=== PATIENT | male | born 1985 | race Caucasian/White ===

== ENCOUNTER 2024-03-18 08:43 | Emergency (ER) | payer MEDICAID, SELFPAY ==
[2024-03-18 08:48] VITALS: BP 109/77; PULSE 102; RESP 18; TEMP 36.6; O2SAT 97; BMI 16.0
--- NOTE | 2024-03-18 09:20 | CRLHL7_ITS ---
For Patients: As a result of the Century Cures Act, medical imaging exams and procedure reports are released immediately into your electronic medical record. You may view this report before your referring provider. If you have questions, please contact your health care provider. INDICATION: WEAKNESS TECHNIQUE: CT of the head was performed without IV contrast. COMPARISON: None. FINDINGS: Parenchyma: No acute hemorrhage, infarction, or mass. Ventricles and extra-axial spaces: Appropriate for age. Visualized paranasal sinuses: Clear. Mastoid air cells: Clear. Bones: No focal abnormality. Additional comment: None. IMPRESSION: No acute intracranial abnormality. Please note that all CT scans at this facility use dose modulation, iterative reconstruction, and/or weight-based dosing when appropriate to reduce radiation dose to as low as reasonably achievable. Dictated by Xavier Valero MD @ 03/18/2024 10:17:02 AM (Electronically Signed)
--- NOTE | 2024-03-18 09:20 | CRLHL7_ITS ---
For Patients: As a result of the Century Cures Act, medical imaging exams and procedure reports are released immediately into your electronic medical record. You may view this report before your referring provider. If you have questions, please contact your health care provider. INDICATION: Weakness COMPARISON: None TECHNIQUE: Upright single view examination. FINDINGS: TUBES AND LINES: None. HEART AND MEDIASTINUM: The heart size is normal. The mediastinal contour appears normal for patient age. LUNGS AND PLEURAL SPACES: The lungs appear normal.The pleural spaces are unremarkable. OSSEOUS STRUCTURES: Age-appropriate appearance. No acute focal finding. IMPRESSION: No evidence of active pulmonary disease. Dictated by Vish Dyson MD @ 03/18/2024 9:58:59 AM (Electronically Signed)
--- NOTE | 2024-03-18 09:23 | ED_ITS ---
HPI - General Adult General Chief complaint: Neuro Symptoms/Altered Deficit Stated complaint: stroke possible 2 days ago Time Seen by Provider: 03/18/24 08:48 History of Present Illness HPI narrative: 38-year-old white male with multiple medical problems presents primarily with right eye redness, some scabbing about his hands in the intertriginous areas. He has had chronic medical issues and just was released from custodial in [facility] where he was hospitalized for about 40 days. He had some digestive issues and had part of his stomach removed by his report. He is here with his parents. He lives in [place] with his parents. He has lost a lot a weight due to his GI issues. He was discharged from the hospital. He was discharged from present. 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 He reports he has had some eye redness but no pain vision has been grossly normal, he has also noted some urinary symptoms and he does self catheterization. He has had some chronic weakness and a lot of weight loss as mention. Family is most concerned about his rash, make sure does not have pneumonia or urinary tract infection. They also request check for a possible stroke although he reports that he has been chronically weak. His mother reports that he has had digestive issues and this has been a problem with his eating and weight management. Patient has received most of his care at [facility] by his family's report. He is an insulin- dependent diabetic Related Data Home Medications ?Medication ?Instructions ?Recorded ?Confirmed acetaminophen 325 mg capsule 975 mg PO .Q8 PRN 03/18/24 03/18/24 albuterol PRN 03/18/24 amitriptyline 50 mg tablet 50 mg PO QHS 03/18/24 03/18/24 apixaban 5 mg tablet 5 mg PO BID 03/18/24 03/18/24 cholestyramine-aspartame oral ea PO 03/18/24 powder cyanocobalamin (vitamin B-12) 1,000 mcg PO DAILY 03/18/24 03/18/24 1,000 mcg capsule dicyclomine 20 mg tablet 20 mg PO BID 03/18/24 03/18/24 duloxetine 30 mg capsule,delayed 30 mg PO DAILY 03/18/24 03/18/24 release (Cymbalta) fluconazole 200 mg tablet 800 mg PO DAILY 03/18/24 03/18/24 (Diflucan) folic acid 1 mg tablet 1,000 mcg PO DAILY 03/18/24 03/18/24 gabapentin 300 mg capsule 900 mg PO TID 03/18/24 03/18/24 osshuw-mykzgelw-rvyyuzy 5 cap PO TID 03/18/24 03/18/24 12,000-38,000-60,000 unit capsule,delayed rel (Creon) tjxzke-guhsjwpw-shnutap 2 cap PO BID 03/18/24 03/18/24 36,000-114,000-180,000 unit capsule,delay rel (Creon) Previous Rx's ?Medication ?Instructions ?Recorded nitrofurantoin 100 mg PO Q12H 7 days #14 caps 03/18/24 monohydrate/macrocrystals 100 mg capsule (Macrobid) permethrin 1 % topical liquid 30 ml topical ONCE #59 mL 03/18/24 sulfacetamide sodium 10 % eye drops 1 drp ophthalmic (eye-right) Q4H 5 03/18/24 days #15 mL Allergies Allergy/AdvReac Type Severity Reaction Status Date / Time augmentin Allergy Mild stomach Uncoded 03/18/24 09:11 upset Review of Systems Status of ROS: Reports: 6 or more systems reviewed and unremarkable except as noted in History and below [facility] Social History Non-prescribed substance use: denies use Exam Narrative: Exam Narrative: Objective: Patient's vital signs look unremarkable This is a cachectic male, he has got some intertriginous scabbing and redness consistent with a scabies infection of his hands. He has got right eye conjunctivitis No other facial asymmetry neck is supple Chest clear Pulse regular Abdomen has a midline surgical scar Extremities without edema neurologic grossly nonfocal. The patient is able to stand and move. Does not appear to have focal neurologic weakness. Const: Vital Signs, click to edit/add: Vital Signs - 24 hr 03/18/24 08:48 Temperature 97.8 F Pulse Rate [Pulse Oximeter] 102 H Respiratory Rate 18 Blood Pressure [Le ft Upper Arm] 109/77 Pulse Oximetry 97 Oxygen Delivery Me thod Room Air Course Vital Signs Vital signs: Initial Vital Signs Temperature 97.8 F 03/18/24 08:48 Temperature Source Temporal Artery Scan 03/18/24 08:48 Pulse Rate 102 H 09/11/24 08:48 Respiratory Rate 18 03/18/24 08:48 Blood Pressure 109/77 03/18/24 08:48 Blood Pressure Mean 87 03/18/24 08:48 Blood Pressure Position Sitting 03/18/24 08:48 Pulse Oximetry 97 03/18/24 08:48 Oxygen Delivery Method Room Air 03/18/24 08:48 Vital Signs Temperature 97.8 F 03/18/24 08:48 Pulse Rate 102 H 03/18/24 08:48 Respiratory Rate 18 03/18/24 08:48 Blood Pressure 109/77 03/18/24 08:48 Pulse Oximetry 97 03/18/24 08:48 Oxygen Delivery Method Room Air 03/18/24 08:48 Temperature 97.8 F 03/18/24 08:48 Pulse Rate 102 H 03/18/24 08:48 Respiratory Rate 18 03/18/24 08:48 Blood Pressure 109/77 03/18/24 08:48 Pulse Oximetry 97 03/18/24 08:48 Oxygen Delivery Method Room Air 03/18/24 08:48 Medical Decision Making MDM Narrative Medical decision making narrative: 30-year-old cachectic male with history of GI issues cared for at [facility], now with complaint of right eye conjunctivitis, skin rash on his hands, and concern for UTI or pneumonia. Will check a urine test, x-ray of his chest, CT scan of his head, laboratory studies. Disposition pending findings. He will need to follow-up with his GI specialty group about weight issues and GI problems. The patient at this point appears hemodynamically stable. He reports that he is able to eat and drink but will need follow-up as mentioned above. Will check labs as above. Addendum 10:37 a.m.: The patient's head CT looks unremarkable, chest x-ray is negative by my read. Patient has a urinalysis shows trace leukocyte esterase. I think because of his symptoms would cover with antibiotics will give him Macro dantin 100 mg b.i.d. x7 days. He has right eye conjunctivitis and will get him soon limit for that to use as directed, would also give him permethrin for his potential scabies infection. He should follow up with regular doctor in the next few days. I would also recommend he follow-up with his GI doctor as mentioned above as he has elevated alk phosphatase, I did order isoenzymes on that and that would be helpful for follow-up GI visit. He has no abdominal pain I do not think he needs imaging of his stomach at this time. Return as needed. Nursing staff noticed a couple areas of skin irritation and breakdown on his buttock area and will give him a option for wound care follow-up. Think follow- up with GI and worry about his nutritional status would be very important. Return as needed. Lab Data Labs: Lab Results 03/18/24 03/18/24 Range/Units 09:50 10:04 WBC 11.15 H (4.50-11.00) K/uL RBC 4.52 (4.30-5.90) m/uL Hgb 12.5 L (13.5-17.5) gm/dL Hct 39.4 (37.0-53.0) % MCV 87 (80-100) fL MCH 28 (26-34) pg MCHC 32 (32-36) gm/dL RDW Coeff of Hossein 16.7 H (11.5-15.5) % Plt Count 352 (140-440) K/uL Neut % (Auto) 71.6 (42.0-72.0) % Lymph % (Auto) 20.1 (20-44) % [place] % (Auto) 6.5 (0.0-11.0) % Eos % (Auto) 1.0 (0.0-7.0) % Baso % (Auto) 0.7 (0.0-3.0) % Neut # (Auto) 8.00 H (1.7-7.0) K/uL Lymph # (Auto) 2.20 (0.90-2.90) K/uL [place] # (Auto) 0.70 (0.00-0.90) K/UL Eos # (Auto) 0.10 (0.00-0.50) K/uL Baso # (Auto) 0.10 (0.00-0.30) K/uL Abs Immat Gran (auto) 0.00 (0.00-0.30) K/uL Imm/Tot Granulo (auto) 0.1 % Sodium 133 L (135-149) mmol/L Potassium 3.7 (3.6-5.1) mmol/L Chloride 104 (96-114) mmol/L Carbon Dioxide 18 L (20-32) mmol/L Anion Gap 11 (7-15) mEq/L BUN 20 (5-24) mg/dL Creatinine 1.4 (0.5-1.5) mg/dL Estimated Creat Clear 52.78 Estimated GFR 66 ml/min Glucose 284 H (60-115) mg/dL Calcium 10.2 (8.4-10.6) mg/dL Total Bilirubin 0.4 (0.1-1.5) mg/dL Direct Bilirubin 0.4 (0.0-0.5) mg/dL AST 39 H (12-35) U/L ALT 27 (4-50) U/L Alkaline Phosphatase 582 H (40-150) U/L C-Reactive Protein < 0.5 L (0.5-1.0) mg/dL Total Protein 8.1 (6.0-8.3) g/dL Albumin 4.0 (3.3-5.0) g/dL Urine Color Yellow (Yellow) Urine Appearance Cloudy A (Clear) Urine pH 5.5 (5.0-8.5) Ur Specific [place] >= 1.030 (1.000-1.030) Urine Protein 2+ A (Negative) Urine Glucose (UA) Negative (Negative) Urine Ketones Negative (Negative) Urine Blood 3+ A (Negative) Urine Nitrite Negative (Negative) Urine Bilirubin Negative (Negative) Urine Urobilinogen 0.2 (0.2-1.0) Ur Leukocyte Esterase Trace A (Negative) Urine RBC 5-10 A (0-2) Urine WBC 25-50 A (0-5) Urine WBC Clumps None (None) Ur Squamous Epith Cells None (None-Few) Calcium Oxalate Crystal Few A (None) Urine Bacteria Many A (None) Discharge Plan Discharge Clinical Impression: Conjunctivitis, Rash of hand, Diabetes, Alkaline phosphatase elevation, Urinary tract infection Patient Disposition: Home w/ Parent or Adult Condition: Stable Instructions: Scabies (ED) Additional Instructions: Recheck with your GI doctor within the next week or 2 regarding your weight, and GI issues such as your elevated liver function test. Topical lotion for your skin rash. Eye drop for your right eye conjunctivitis. Continue home medications. Establish primary care and see them within the next few days as w [place]. macrodantin for uti Activity Level: Light activity Discharge Diet: Regular Prescriptions: New sulfacetamide sodium 10 % drops 1 drp ophthalmic (eye-right) Q4H 5 Days Qty: 15 0RF permethrin 1 % liquid 30 ml topical ONCE Qty: 59 0RF nitrofurantoin monohyd/m-cryst [Macrobid] 100 mg capsule 100 mg PO Q12H 7 Days Qty: 14 0RF Rx Instructions: must administer with a meal/food No Action acetaminophen 325 mg capsule 975 mg PO .Q8 PRN albuterol PRN Patient Comments: 2 puffs every 4 hours as needed amitriptyline 50 mg tablet 50 mg PO QHS apixaban 5 mg tablet 5 mg PO BID cholestyramine-aspartame Powder PO Creon 36,000-114,000- 180,000 unit capsule,delayed release(DR/EC) 2 cap PO BID Rx Instructions: administer with meals and/or snacks Creon 12,000-38,000 -60,000 unit capsule,delayed release(DR/EC) 5 cap PO TID Rx Instructions: administer with meals and/or snacks cyanocobalamin (vitamin B-12) 1,000 mcg capsule 1,000 mcg PO DAILY dicyclomine 20 mg tablet 20 mg PO BID duloxetine [Cymbalta] 30 mg capsule,delayed release(DR/EC) 30 mg PO DAILY fluconazole [Diflucan] 200 mg tablet 800 mg PO DAILY folic acid 1 mg tablet 1,000 mcg PO DAILY gabapentin 300 mg capsule 900 mg PO TID Stand Alone Forms: [facility] Info Instructions
[2024-03-18 09:59] LABS: Basophils Percent Auto 0.7 % (0.0-3.0); Hematocrit 39.4 % (37.0-53.0); Hemoglobin* 12.5 gm/dL (13.5-17.5); Immature Granulocytes Pct Auto 0.1 %; Lymphocytes Percent Auto 20.1 % (20-44); Mean Corpuscular HGB Conc 32 gm/dL (32-36); Mean Corpuscular Hemoglobin 28 pg (26-34); Mean Corpuscular Volume 87 fL (80-100); Monocytes Percent Auto 6.5 % (0.0-11.0); Neutrophils Percent Auto 71.6 % (42.0-72.0); Platelet Count* 352 K/uL (140-440); RDW Coefficient of Variation % 16.7 % (11.5-15.5); Red Blood Count 4.52 m/uL (4.30-5.90); White Blood Count* 11.15 K/uL (4.50-11.00)
[2024-03-18 10:04] LABS: Slide Review Reflex No
[2024-03-18 10:11] LABS: Chloride* 104 mmol/L (96-114)
[2024-03-18 10:12] LABS: Potassium* 3.7 mmol/L (3.6-5.1); Sodium* 133 mmol/L (135-149)
[2024-03-18 10:14] LABS: Creatinine* 1.4 mg/dL (0.5-1.5); Est. Creatinine Clearance* 52.78; Estimated Glomerular Filt Rate 66 ml/min
[2024-03-18 10:15] LABS: Alanine Aminotransferase* 27 U/L (4-50); Alkaline Phosphatase* 582 U/L (40-150); Anion Gap 11 mEq/L (7-15); Aspartate Amino Transferase* 39 U/L (12-35); Bilirubin Direct* 0.4 mg/dL (0.0-0.5); Bilirubin Total* 0.4 mg/dL (0.1-1.5); Blood Urea Nitrogen* 20 mg/dL (5-24); Calcium* 10.2 mg/dL (8.4-10.6); Carbon Dioxide* 18 mmol/L (20-32); Glucose* 284 mg/dL (60-115); Total Protein* 8.1 g/dL (6.0-8.3)
[2024-03-18 10:19] LABS: C Reactive Protein* < 0.5 mg/dL (0.5-1.0)
[2024-03-18 10:21] LABS: Appearance Urine Cloudy (Clear); Bilirubin Urine Negative (Negative); Blood Urine 3+ (Negative); Color Urine Yellow (Yellow); Glucose Urine Negative (Negative); Ketones Urine Negative (Negative); Leukocyte Esterase Urine Trace (Negative); Nitrite Urine Negative (Negative); Protein Urine 2+ (Negative); Specific Gravity Urine >= 1.030 (1.000-1.030); Urobilinogen Urine 0.2 (0.2-1.0); pH Urine 5.5 (5.0-8.5)
[2024-03-18 10:42] LABS: WBC Urine 25-50 (0-5)
[2024-03-18 10:43] LABS: Bacteria Urine Many; Calcium Oxalate Crystals Urine Few
== END 2024-03-18 11:34 | disposition home or self-care (01) ==
PROVIDERS: Emergency Provider Family Medicine; PCP Family Medicine
DX: H10.021 Other mucopurulent conjunctivitis, right eye (principal); E11.9 Type 2 diabetes mellitus without complications; N39.0 Urinary tract infection, site not specified; R74.8 Abnormal levels of other serum enzymes
CPT/HCPCS: 36415; 70450; 71045; 80048; 80076; 81001; 84075; 84080; 85025; 86140; 87086; 87186; 99284

== ENCOUNTER 2024-03-20 00:18 | Emergency (ER) | payer MEDICAID, SELFPAY ==
[2024-03-20 00:26] VITALS: BP 107/77; PULSE 103; RESP 14; TEMP 36.6; O2SAT 96; BMI 15.3
--- NOTE | 2024-03-20 00:40 | ED.GENADULT ---
HPI - General Adult General Chief complaint: Weakness Stated complaint: weakness Time Seen by Provider: 03/20/24 00:28 History of Present Illness HPI narrative: Patient is a 38-year-old gentleman who was just seen yesterday here the emergency room. 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 He has recently in retirement for making terroristic threats. Upon discharge he was found by his family to be more cachectic and emaciated and previous. He is diabetic but did not seem to have evidence of DKA yesterday. He comes in today with complaints that all of his skin is falling off and he is leaking water every where. Um he does have some superficial ulcerations on his finger tips which do not appear secondarily infected but upon further questioning agrees that temp his skin likely is not falling off. Clearly is not eating and is failing at home. He does live with his parents since his discharge from present. No other localized complaints. Did review his findings from yesterday which showed UTI he is on antibiotics. He was noted to have a elevated alkaline phosphatase and isoenzymes are pending. Again no other localizing symptoms. Related Data Home Medications ?Medication ?Instructions ?Recorded ?Confirmed acetaminophen 325 mg capsule 975 mg PO .Q8 PRN 03/18/24 03/18/24 albuterol PRN 03/18/24 amitriptyline 50 mg tablet 50 mg PO QHS 03/18/24 03/18/24 apixaban 5 mg tablet 5 mg PO BID 03/18/24 03/18/24 cholestyramine-aspartame oral ea PO 03/18/24 powder cyanocobalamin (vitamin B-12) 1,000 mcg PO DAILY 03/18/24 03/18/24 1,000 mcg capsule dicyclomine 20 mg tablet 20 mg PO BID 03/18/24 03/18/24 duloxetine 30 mg capsule,delayed 30 mg PO DAILY 03/18/24 03/18/24 release (Cymbalta) fluconazole 200 mg tablet 800 mg PO DAILY 03/18/24 03/18/24 (Diflucan) folic acid 1 mg tablet 1,000 mcg PO DAILY 03/18/24 03/18/24 gabapentin 300 mg capsule 900 mg PO TID 03/18/24 03/18/24 tgyvav-gmgqadln-spiwpka 5 cap PO TID 03/18/24 03/18/24 12,000-38,000-60,000 unit capsule,delayed rel (Creon) sgmiig-kainmgac-twwgvap 2 cap PO BID 03/18/24 03/18/24 36,000-114,000-180,000 unit capsule,delay rel (Creon) Previous Rx's ?Medication ?Instructions ?Recorded nitrofurantoin 100 mg PO Q12H 7 days #14 caps 03/18/24 monohydrate/macrocrystals 100 mg capsule (Macrobid) permethrin 1 % topical liquid 30 ml topical ONCE #59 mL 03/18/24 sulfacetamide sodium 10 % eye drops 1 drp ophthalmic (eye-right) Q4H 5 03/18/24 days #15 mL Allergies Allergy/AdvReac Type Severity Reaction Status Date / Time augmentin Allergy Mild stomach Uncoded 03/18/24 09:11 upset Review of Systems Status of ROS: Reports: 10 or more systems reviewed and unremarkable except as noted in History and below [facility] Social History Non-prescribed substance use: denies use Exam Narrative: Exam Narrative: EXAM GENERAL: Patient appears cachectic and emaciated. EYES: No scleral icterus. LYMPH: No supraclavicular or cervical lymphadenopathy. SKIN: Superficial ulcerations on the fingertips which could be consistent with cigarette durant from smoking. EXT: No dependent lower extremity pedal edema. HEART: Regular rate and rhythm with no murmurs, rubs, or gallops. LUNGS: Clear to auscultation bilaterally with no crackles or wheezes. ABD: Soft, non tender, non distended. Scaphoid emaciated PSYCH: Good eye contact, speech is not pressured. Const: Vital Signs, click to edit/add: Vital Signs - 24 hr 03/20/24 00:26 Temperature 98 F Pulse Rate [Pulse Oximeter] 103 H Respiratory Rate 14 Blood Pressure [Ri ght Upper Arm] 107/77 Pulse Oximetry 96 Oxygen Delivery Me thod Room Air Course Course ED Course: Patient seen and examined. We will repeat previous workup and reassess. Vital Signs Vital signs: Initial Vital Signs Temperature 98 F 03/20/24 00:26 Temperature Source Temporal Artery Scan 03/20/24 00:26 Pulse Rate 103 H 03/20/24 00:26 Respiratory Rate 14 03/20/24 00:26 Blood Pressure 107/77 03/20/24 00:26 Blood Pressure Mean 87 03/20/24 00:26 Blood Pressure Position Sitting 03/20/24 00:26 Pulse Oximetry 96 03/20/24 00:26 Oxygen Delivery Method Room Air 03/20/24 00:26 Vital Signs Temperature 98 F 03/20/24 00:26 Pulse Rate 103 H 03/20/24 00:26 Respiratory Rate 14 03/20/24 00:26 Blood Pressure 107/77 03/20/24 00:26 Pulse Oximetry 96 03/20/24 00:26 Oxygen Delivery Method Room Air 03/20/24 00:26 Temperature 98 F 03/20/24 00:26 Pulse Rate 103 H 03/20/24 00:26 Respiratory Rate 14 03/20/24 00:26 Blood Pressure 107/77 03/20/24 00:26 Pulse Oximetry 96 03/20/24 00:26 Oxygen Delivery Method Room Air 03/20/24 00:26 Medical Decision Making MDM Narrative Medical decision making narrative: I have seen the patient visited with family and reviewed his recent medical records. Patient appears to be grossly malnourished. His labs are the same with leukocytosis mild anemia and elevated alkaline phosphatase. I did advise him to continue his antibiotics. I do think that a large component of over dealing with his failure to thrive. He does have an appointment with GI in the next few hours and I do think releasing him to the care of his family is reasonable at this time. Patient will continue to tried to improve his oral intake and will get established with primary care which I do think is going to be [place]. Lab Data Labs: Lab Results 03/20/24 Range/Units 00:45 WBC 13.37 H (4.50-11.00) K/uL RBC 4.15 L (4.30-5.90) m/uL Hgb 11.5 L (13.5-17.5) gm/dL Hct 36.1 L (37.0-53.0) % MCV 87 (80-100) fL MCH 28 (26-34) pg MCHC 32 (32-36) gm/dL RDW Coeff of Hossein 16.7 H (11.5-15.5) % Plt Count 372 (140-440) K/uL Neut % (Auto) 76.6 H (42.0-72.0) % Lymph % (Auto) 15.3 L (20-44) % [place] % (Auto) 6.7 (0.0-11.0) % Eos % (Auto) 0.7 (0.0-7.0) % Baso % (Auto) 0.6 (0.0-3.0) % Neut # (Auto) 10.20 H (1.7-7.0) K/uL Lymph # (Auto) 2.00 (0.90-2.90) K/uL [place] # (Auto) 0.90 (0.00-0.90) K/UL Eos # (Auto) 0.10 (0.00-0.50) K/uL Baso # (Auto) 0.10 (0.00-0.30) K/uL Abs Immat Gran (auto) 0.00 (0.00-0.30) K/uL Imm/Tot Granulo (auto) 0.1 % Sodium 135 (135-149) mmol/L Potassium 3.6 (3.6-5.1) mmol/L Chloride 107 (96-114) mmol/L Carbon Dioxide 17 L (20-32) mmol/L Anion Gap 11 (7-15) mEq/L BUN 23 (5-24) mg/dL Creatinine 1.3 (0.5-1.5) mg/dL Estimated Creat Clear 54.37 Estimated GFR 72 ml/min Glucose 188 H (60-115) mg/dL Calcium 9.9 (8.4-10.6) mg/dL Total Bilirubin 0.4 (0.1-1.5) mg/dL AST 38 H (12-35) U/L ALT 24 (4-50) U/L Alkaline Phosphatase 550 H (40-150) U/L Total Protein 7.8 (6.0-8.3) g/dL Albumin 3.7 (3.3-5.0) g/dL Discharge Plan Discharge Clinical Impression: Urinary tract infection Patient Disposition: Home w/ Parent or Adult Condition: Stable Instructions: Urinary Tract Infection in Men (ED) Additional Instructions: Continue current care Keep outpatient appointments Activity Level: No Restrictions Discharge Diet: Regular Prescriptions: No Action acetaminophen 325 mg capsule 975 mg PO .Q8 PRN albuterol PRN Patient Comments: 2 puffs every 4 hours as needed amitriptyline 50 mg tablet 50 mg PO QHS apixaban 5 mg tablet 5 mg PO BID cholestyramine-aspartame Powder PO Creon 36,000-114,000- 180,000 unit capsule,delayed release(DR/EC) 2 cap PO BID Rx Instructions: administer with meals and/or snacks sulfacetamide sodium 10 % drops 1 drp ophthalmic (eye-right) Q4H 5 Days Qty: 15 0RF Creon 12,000-38,000 -60,000 unit capsule,delayed release(DR/EC) 5 cap PO TID Rx Instructions: administer with meals and/or snacks cyanocobalamin (vitamin B-12) 1,000 mcg capsule 1,000 mcg PO DAILY dicyclomine 20 mg tablet 20 mg PO BID duloxetine [Cymbalta] 30 mg capsule,delayed release(DR/EC) 30 mg PO DAILY permethrin 1 % liquid 30 ml topical ONCE Qty: 59 0RF fluconazole [Diflucan] 200 mg tablet 800 mg PO DAILY folic acid 1 mg tablet 1,000 mcg PO DAILY gabapentin 300 mg capsule 900 mg PO TID nitrofurantoin monohyd/m-cryst [Macrobid] 100 mg capsule 100 mg PO Q12H 7 Days Qty: 14 0RF Rx Instructions: must administer with a meal/food Follow Up/Referrals: Salvador Saleh MD [Primary Care Provider] - Stand Alone Forms: [facility] Info Instructions
[2024-03-20 00:54] LABS: Basophils Percent Auto 0.6 % (0.0-3.0); Eosinophils Percent Auto 0.7 % (0.0-7.0); Hematocrit 36.1 % (37.0-53.0); Hemoglobin* 11.5 gm/dL (13.5-17.5); Immature Granulocytes Pct Auto 0.1 %; Lymphocytes Percent Auto 15.3 % (20-44); Mean Corpuscular HGB Conc 32 gm/dL (32-36); Mean Corpuscular Hemoglobin 28 pg (26-34); Mean Corpuscular Volume 87 fL (80-100); Monocytes Percent Auto 6.7 % (0.0-11.0); Neutrophils Percent Auto 76.6 % (42.0-72.0); Platelet Count* 372 K/uL (140-440); RDW Coefficient of Variation % 16.7 % (11.5-15.5); Red Blood Count 4.15 m/uL (4.30-5.90); White Blood Count* 13.37 K/uL (4.50-11.00)
[2024-03-20 00:57] LABS: Slide Review Reflex No
[2024-03-20 01:23] LABS: Albumin* 3.7 g/dL (3.3-5.0); Chloride* 107 mmol/L (96-114)
[2024-03-20 01:24] LABS: Potassium* 3.6 mmol/L (3.6-5.1); Sodium* 135 mmol/L (135-149)
[2024-03-20 01:26] LABS: Anion Gap 11 mEq/L (7-15); Aspartate Amino Transferase* 38 U/L (12-35); Bilirubin Total* 0.4 mg/dL (0.1-1.5); Carbon Dioxide* 17 mmol/L (20-32); Creatinine* 1.3 mg/dL (0.5-1.5); Est. Creatinine Clearance* 54.37; Estimated Glomerular Filt Rate 72 ml/min; Total Protein* 7.8 g/dL (6.0-8.3)
[2024-03-20 01:27] LABS: Alanine Aminotransferase* 24 U/L (4-50); Alkaline Phosphatase* 550 U/L (40-150); Blood Urea Nitrogen* 23 mg/dL (5-24); Calcium* 9.9 mg/dL (8.4-10.6); Glucose* 188 mg/dL (60-115)
--- OUTSIDE RECORDS SUMMARY | 2024-03-20 01:32 | XMS_ITS | Clinical Summary ---
Author Organization [facility] Address [place], [place] [address] Care Team Providers Care Credit Resolution Representative Name Role Phone Caron Loyd RN Unavailable Allergies Active Allergy Reactions Criticality Noted Date Comments Amoxicillin-Pot Clavulanate Stomach Upset 10/31 Medications Medication Sig Dispensed Refills Start Date End Date Status sildenafil citrate (VIAGRA) 100 mg tabletIndications: ED (erectile dysfunction) of organic origin,Uncontrolle d type 1 diabetes mellitus with hyperglycemia (HC) Take 1 tablet by mouth once daily if needed for Erectile Dysfunction. Take 30min to 4 hours before sexual activity. Max 100mg/24hr. 10 tablet 11 0 Active FreeStyle Jose 14 Day Easley miscIndications:Un controlled type 1 diabetes mellitus with hyperglycemia (HC) USE DIRECTED 1 Each 3 1 Active traZODone (DESYREL) 50 mg tablet TAKE 1-2 TABLETS AT BEDTIME NEEDED ORALLY ONCE A DAY 30 DAYS 2 Active acetaminophen (TYLENOL) 325 mg tablet Take 975 mg by mouth every 8 hours if needed. Active alcohol swabs Use to swab area of injection/jerrell as directed 3 Active apixaban (ELIQUIS) 5 mg tablet Take 5 mg by mouth. 4 05/23/20 24 Active cholestyramine-asp artame (Cholestyramine Light) 4 gram packet Mix 4 g in liquid then take by mouth. 4 Active cyanocobalamin (VITAMIN B12) 1,000 mcg tablet Take 1,000 mcg by mouth. 4 Active dicyclomine (BENTYL) 10 mg capsule Take 20 mg by mouth 2 times daily if needed. 4 Active folic acid 1 mg tablet Take 1 mg by mouth. 4 Active insulin lispro, U-100, (HUMALOG KWIKPEN; ADMELOG SOLOSTAR) 100 unit/mL inpn pen Inject 0-3 units three times a day before meal per correction scale. 1 unit per 50 if glucose is greater than 180 mg/dl. Discard each pen 28 days after first use. 4 Active linezolid (ZYVOX) 600 mg tablet Take 600 mg by mouth. 4 Active hxemso-xedtdfub-mc ylase (Creon) 12,000-38,000 -60,000 unit cpDR delayed-release capsule Take 5 Capsules by mouth. 4 Active hpgwrd-lbeatpbr-vq ylase (CREON) 36,000-114,000- 180,000 unit capsule Take 2 Capsules by mouth. Active blood-glucose meterIndications:T ype 1 diabetes mellitus with nephropathy (HC) As directed. Dispense meter, test strips, lancets covered by pt ins. E10.9 IDDM type I - Test 3 times/day. 1 Each 4 Active sucralfate (CARAFATE) 1 gram tablet Take 1 g by mouth four times daily before meals and at bedtime. 4 Active oxyCODONE (ROXICODONE) 5 mg immediate release tablet Take 5 mg by mouth every 4 hours if needed. 3 Active mirtazapine (REMERON) 30 mg tablet Take 30 mg by mouth at bedtime. 4 Active melatonin 3 mg tablet Take 3 mg by mouth at bedtime. 3 Active lurasidone (LATUDA) 40 mg tablet Take 40 mg by mouth with dinner. 4 Active insulin detemir U-100 (LEVEMIR) 100 unit/mL (3 mL) pen Inject 25 units subcutaneous once daily in the evening. 3 Active thiamine (VITAMIN B1) 100 mg tablet Take 100 mg by mouth once daily. 3 Active lancetsIndications :Type 1 diabetes mellitus with nephropathy (HC) Test 3 times per day. 100 Each 5 4 Active blood sugar diagnostic (Blood Glucose Test) stripIndications:T ype 1 diabetes mellitus with nephropathy (HC) Dispense item that works with the [employer] glucometer 200 Each 1 4 Active Diaper,Brief, Adult,DisposableIn dications:Incontin ence of feces, unspecified fecal incontinence type For home use. Using 3-10 a day. 300 Each 4 Active glucagon 1 mg/0.2 mL atInIndications:Ty pe 1 diabetes mellitus with nephropathy (HC) by abdominal subcutaneous route. Inject the contents of 1 device under the skin into lower abdomen, outer thigh, or outer upper arm as needed for hypoglycemia. If no response after 15 minutes, additional 1 mg dose from a new device may be injected while waiting for emergency assistance. 1 Each 4 Active FreeStyle Jose 2 SensorIndications: Type 1 diabetes mellitus with nephropathy (HC) To be used to read blood sugars per marble installation helper's directions. 6 Each 3 4 Active insulin glargine, U-100, (Lantus Solostar U-100 Insulin) 100 unit/mL (3 mL) penIndications:Typ e 1 diabetes mellitus with nephropathy (HC) Inject 5 units subcutaneous before bedtime. Product desired: LANTUS SOLOSTAR 6 mL 2 4 Active insulin aspart, U-100, (NOVOLOG FLEXPEN) 100 unit/mL (3 mL) penIndications:Typ e 1 diabetes mellitus with nephropathy (HC) ADMINISTER 2 UNITS UNDER THE SKIN THREE DAILY BEFORE MEALS. With sliding scale. Blood glucose less than 150, no additional insulin. 151-199 give 1 unit; 200-249=2 units; 250-299=3 units; 300-349=4 units; 350-399=5 units; 400 or greater=6 units 15 mL 3 4 Active pen needle (BD Insulin Pen Needle UF) 31 gauge x 5/16 (disposable insulin pen needle)Indications :Type 1 diabetes mellitus with nephropathy (HC) Test 3 times/day; 250.01; Insulin dependent. 12/27/2014 This Rx replaces all other Rxs for this medication 100 Each 4 Active loperamide (IMODIUM) 2 mg capsuleIndications :Diarrhea, unspecified type TAKE 2 CAPSULES BY MOUTH WITH 1ST LOOSE STOOL, THEN 1 CAPSULE WITH EACH SUBSEQUENT LOOSE STOOL. MAX 8 CAPSULES IN 24 HOURS 90 Capsule 3 4 Active gabapentin (NEURONTIN) 300 mg capsuleIndications :Chronic pain syndrome Take 3 Capsules (900 mg) by mouth three times daily. 270 Capsule 4 Active glucose 4 gram chewable tabletIndications: Type 1 diabetes mellitus with nephropathy (HC) Chew 1 Tablet (4 g) by mouth each time if needed for Blood Gluc < . 30 Tablet 3 4 Active DULoxetine (CYMBALTA) 30 mg Delayed-release capsuleIndications :Chronic pain syndrome Take 1 Capsule (30 mg) by mouth once daily. 90 Capsule 3 4 Active amitriptyline (ELAVIL) 50 mg tabletIndications: Insomnia, unspecified type Take 1 Tablet (50 mg) by mouth at bedtime. 90 Tablet 3 4 Active omeprazole (PRILOSEC) 20 mg Delayed-Release capsuleIndications :Chronic GERD Take 1 Capsule (20 mg) by mouth once daily before a meal. 90 Capsule 3 4 Active albuterol HFA (PRO-AIR; VENTOLIN; PROVENTIL) 90 mcg/actuation inhalerIndications :SOB (shortness of breath) Inhale 2 Puffs by mouth every 4 hours if needed for Shortness Of Breath. 18 g 5 4 Active wheelchairIndicati ons:Weakness of both legs Wheelchair: Standard with leg rests: (Articulating Length of need: 24 months 1 Each 4 Active Blood Pressure Monitor KitIndications:SOB (shortness of breath),Hypotensio n, unspecified hypotension type Frequency of testin times per week 1 Each 4 Active Gauze Bandage 4 X 4 spgeIndications:Ab dominal wound dehiscence, sequela Apply topically to affected area(s). 50 Each 4 Active Catheter (Self-Cath) 10-16 Fr- miscIndications:Ur inary retention Use as needed for urinary retention 4-6 times a day. 100 Each 11 4 Active insulin syringe,safetyneed le 1 mL 29 x 1/2 syrgIndications:Ty pe 1 diabetes mellitus without complication (HC) As directed. 1 box 0 5 03/02/20 24 Discontinue d(*Medicati on adjustment) insulin needles, disposable, (BD INSULIN PEN NEEDLE UF) 31 X 11/20 Test 3 times/day; 250.01; Insulin dependent. 12/27/2014 This Rx replaces all other Rxs for this medication 90 Each 12 5 02/27/20 24 Discontinue d(Reorder (E-cancel not sent)) lancetsIndications :Type 1 diabetes mellitus with nephropathy (HC) Test 3 times per day. 100 Each 5 0 02/27/20 24 Discontinue d(Reorder (E-cancel not sent)) blood sugar diagnostic (BLOOD GLUCOSE TEST) stripIndications:T ype 1 diabetes mellitus without complication (HC) Dispense item that works with the [employer] glucometer 1 box 0 02/27/20 24 Discontinue d(Reorder (E-cancel not sent)) blood-glucose meterIndications:T ype 1 diabetes mellitus without complication (HC) Dispense meter, test strips, lancets covered by pt ins. E10.9 IDDM type I - Test 3 times/day. 1 Device 0 02/27/20 24 Discontinue d(Reorder (E-cancel not sent)) amitriptyline (ELAVIL) 50 mg tabletIndications: Insomnia, unspecified type Take 1 tablet by mouth at bedtime. 90 tablet 0 03/02/20 24 Discontinue d(Reorder (E-cancel not sent)) DULoxetine (CYMBALTA) 30 mg Delayed-release capsuleIndications :Chronic pain syndrome TAKE 1 CAPSULE BY MOUTH EVERY DAY 30 capsule 1 03/02/20 24 Discontinue d(Reorder (E-cancel not sent)) gabapentin (NEURONTIN) 300 mg capsuleIndications :Chronic pain syndrome TAKE 3 CAPSULES BY MOUTH THREE TIMES DAILY 270 capsule 1 03/02/20 24 Discontinue d(Reorder (E-cancel not sent)) loperamide (IMODIUM) 2 mg capsuleIndications :Diarrhea, unspecified type TAKE 2 CAPSULES BY MOUTH WITH 1ST LOOSE STOOL, THEN 1 CAPSULE WITH EACH SUBSEQUENT LOOSE STOOL. MAX 8 CAPSULES IN 24 HOURS 90 Capsule 1 03/02/20 24 Discontinue d(Reorder (E-cancel not sent)) continuous glucose monitor SENSOR KIT (FreeStyle Jose 14 Day Sensor)Indications :Uncontrolled type 1 diabetes mellitus with hyperglycemia (HC) As directed. 6 Each 3 2 03/02/20 24 Discontinue d(*Medicati on adjustment) insulin detemir U-100 (Levemir FlexPen) 100 unit/mL (3 mL) penIndications:Typ e 1 diabetes mellitus with nephropathy (HC) Inject 25 units subcutaneous before bedtime. 10 mL 3 02/27/20 24 Discontinue d(Reorder (E-cancel not sent)) insulin aspart, U-100, (NOVOLOG FLEXPEN) 100 unit/mL (3 mL) penIndications:Typ e 1 diabetes mellitus with nephropathy (HC) ADMINISTER 8 UNITS UNDER THE SKIN TWICE DAILY BEFORE MEALS 15 mL 3 02/27/20 24 Discontinue d(Reorder (E-cancel not sent)) blood sugar diagnostic (Accu-Chek Guide test strips) strip 1 Each. 4 03/02/20 24 Discontinue d(*Medicati on adjustment) lancets (Accu-Chek Softclix Lancets) Lancing device to be used with lancets. 3 03/02/20 Discontinue d(*Medicati on adjustment) blood sugar diagnostic (Blood Glucose Test) strip Use to test blood sugar 4 times daily or as directed. To accompany: Blood Glucose Monitor Brands: Accucheck guide 3 03/02/20 Discontinue d(*Medicati on adjustment) albuterol HFA (PRO-AIR; VENTOLIN; PROVENTIL) 90 mcg/actuation inhaler Inhale 2 Puffs by mouth every 4 hours if needed. 4 03/02/20 Discontinue d(Reorder (E-cancel not sent)) fluconazole (DIFLUCAN) 200 mg tablet Take 800 mg by mouth. 4 03/04/20 24 glucagon 1 mg/0.2 mL atIn Inject the contents of 1 device under the skin into lower abdomen, outer thigh, or outer upper arm as needed for hypoglycemia. If no response after 15 minutes, additional 1 mg dose from a new device may be injected while waiting for emergency assistance. 3 02/27/20 Discontinue d(Reorder (E-cancel not sent)) insulin glargine, U-100, 100 unit/mL (3 mL) pen Inject 5 units subcutaneous. 4 03/02/20 Discontinue d(*Medicati on adjustment) insulin detemir U-100 (Levemir FlexPen) 100 unit/mL (3 mL) penIndications:Typ e 1 diabetes mellitus with nephropathy (HC) Inject 5 units subcutaneous before bedtime. 10 mL 4 03/02/20 Discontinue d(*Availabi lity/Formul drea change/Cost of medication) insulin aspart, U-100, (NOVOLOG FLEXPEN) 100 unit/mL (3 mL) penIndications:Typ e 1 diabetes mellitus with nephropathy (HC) ADMINISTER 2 UNITS UNDER THE SKIN THREE DAILY BEFORE MEALS. With sliding scale. Blood glucose less than 150, no additional insulin. 151-199 give 1 unit; 200-249=2 units; 250-299=3 units; 300-349=4 units; 350-399=5 units; 400 or greater=6 units 15 mL 4 03/02/20 Discontinue d(Reorder (E-cancel not sent)) pen needle (BD Insulin Pen Needle UF) 31 gauge x 5/16 (disposable insulin pen needle)Indications :Type 1 diabetes mellitus with nephropathy (HC) Test 3 times/day; 250.01; Insulin dependent. 12/27/2014 This Rx replaces all other Rxs for this medication 100 Each 4 03/02/20 Discontinue d(Reorder (E-cancel not sent)) blood sugar diagnostic (Blood Glucose Test) stripIndications:T ype 1 diabetes mellitus with nephropathy (HC) Dispense item that works with the [employer] glucometer 200 Each 1 4 03/02/20 Discontinue d(*Medicati on adjustment) lancetsIndications :Type 1 diabetes mellitus with nephropathy (HC) Test 3 times per day. 100 Each 5 4 03/02/20 24 Discontinue d(*Medicati on adjustment) glucagon 1 mg/0.2 mL atInIndications:Ty pe 1 diabetes mellitus with nephropathy (HC) by abdominal subcutaneous route. Inject the contents of 1 device under the skin into lower abdomen, outer thigh, or outer upper arm as needed for hypoglycemia. If no response after 15 minutes, additional 1 mg dose from a new device may be injected while waiting for emergency assistance. 1 Each 4 03/02/20 24 Discontinue d(Reorder (E-cancel not sent)) Diaper,Brief, Adult,DisposableIn dications:Incontin ence of feces, unspecified fecal incontinence type For home use. Using 3-10 a day. 300 Each 4 03/02/20 24 Discontinue d(Reorder (E-cancel not sent)) Catheter (Self-Cath) 10-16 Fr- miscIndications:Ur inary retention Use as needed for urinary retention 4-6 times a day. 100 Each 11 4 03/02/20 24 Discontinue d(Reorder (E-cancel not sent)) insulin glargine, U-100, (Lantus Solostar U-100 Insulin) 100 unit/mL (3 mL) penIndications:Typ e 1 diabetes mellitus with nephropathy (HC) Inject 5 units subcutaneous before bedtime. Product desired: LANTUS SOLOSTAR 10 mL 4 03/02/20 24 Discontinue d(Reorder (E-cancel not sent)) omeprazole (PRILOSEC) 20 mg Delayed-Release capsule Take 20 mg by mouth once daily before a meal. 4 03/02/20 24 Discontinue d(Reorder (E-cancel not sent)) Catheter (Self-Cath) 10-16 Fr- miscIndications:Ur inary retention Use as needed for urinary retention 4-6 times a day. 100 Each 11 4 03/10/20 24 Discontinue d(Reorder (E-cancel not sent)) DULoxetine (CYMBALTA) 30 mg Delayed-release capsuleIndications :Chronic pain syndrome Take 1 Capsule (30 mg) by mouth once daily. 30 Capsule 4 03/02/20 24 Discontinue d(*Error/Or frantz entry error) Pulse OximeterIndication s:SOB (shortness of breath),History of respiratory failure For home use. 1 Each 4 03/03/20 24 Active Problems Problem Noted Date Diagnosed Date History of respiratory failure 03/02/2024 Weakness of both legs 03/02/2024 Chronic GERD 03/02/2024 Nerve pain 03/02/2024 Type 1 diabetes mellitus with nephropathy 2023 Urinary retention 03/02/2024 Mixed dyslipidemia 2019 Paresthesias 2019 Neuropathic pain 2019 Diarrhea 2019 Insomnia 2019 Methamphetamine dependence 09/08/2019 Uncontrolled type 1 diabetes mellitus with hyper glycemia Overview (2019): Diagnosis 2012 Encounters Date Type Department Care Team Description 03/18/2024 Orders Only [facility] Scanner 1 scan: (1-Ord) [facility], HEAD/BRAIN W/O CONT, 03/18/2024 03/18/2024 [place] [facility] [place] [address] [place] [address] Salvador Saleh MD Questions (appt) 03/10/2024 [place] [facility] [place] [address] [place] [address] Salvador Saleh MD Prior Authorization (GVOKE glucagon 1 mg/0.2 mL atIn PA NOT NEEDED) 03/06/2024 [place] [facility] [place] [address] [place] [address] Salvador Saleh MD Medication Management (QUESTION) 03/03/2024 [place] [facility] [place] [address] [place] [address] Salvador Saleh MD Results 03/02/2024 12:55 PM CDT Office [place] [facility] [address] [place] [address] Salvador Saleh MD Medication Management (needs refills) 03/02/2024 [place] [facility] [place] [address] [place] [address] Salvador Saleh MD Follow Up (From 03/02/24 visit ) 03/02/2024 Travel 02/28/2024 [place] [facility] [place] [address] [place] [address] Albertina Lyons DO Refill Request (levemir) 02/27/2024 12:55 PM CDT [place] [facility] [place] [address] [place] [address] Albertina Lyons DO Diabetes 02/27/2024 [place] [facility] [address] [place] [address] Brooklynn Kelly PA Refill Request 02/27/2024 Travel from Last 3 Months Immunizations Name Administration Dates Next Due HIB PRP-OMP (PedvaxHIB) 03/20/2023 Hepatitis B (Adult) 09/08/2019,05/07/2012,2003 Influenza Virus, Unspecified 05/09/2023 Influenza, IIV3 (Age >=3 years) 05/05/2012 Influenza, IIV4 06/04/2019 MENINGOCOCCAL VACCINE 2 VIAL [id number] (MENVEO) 05/21/2023,03/20/2023 Meningococcal B 05/10/2023,03/20/2023 Pneumococcal Conj 20-valent (Prevnar 20) 023 Pneumococcal Poly,23-Valent (Pneumovax) 05/05/20 12 Tdap 09/08/2019 Family History Medical History Relation Name Comments Diabetes type II Father Relation Name Status Comments Father Alive Mother Alive Social History Tobacco Use Types Packs/Day Years Used Date Smoking Tobacco: Every Day Cigarettes 1 24.7 Started: 1999 Smokeless Tobacco: Never Tobacco Cessation:Ready to Q uit: Not Asked; Counseling Given: Not Answered Comments:15 cig per day Alcohol Use Standard Drinks/Week Comments No 0 (1 standard drink = 0.6 oz pur e alcohol) Social Connections Answer Date Recorded Frequency of Communication with Friends and Fami ly Not on file 09/20/2022 Financial Resource Strain Answer Date R ecorded Difficulty of Paying Living Expenses Not on file 07/08/2021 Difficulty of Paying Living Expenses Not on file 07/08/2021 Sex and Gender Information Value Date Recorded Sex Assigned at Not on file Gender Identity Not on file Sexual Orientation Not on file Obstetrics History Last Filed Vital Signs Vital Sign Reading Time Taken Comments Blood Pressure 110/74 03/02/2024 1:29 PM CDT Pulse 116 03/02/2024 1:29 PM CDT Temperature 36.2 ??C (97.1 ??F) 05/06/2020 12:16 AM C DT Respiratory Rate 16 05/06/2020 12:16 AM CDT Oxygen Saturation 98% 03/02/2024 1:29 PM CDT Inhaled Oxygen Concentration - - Weight 51.7 kg (114 lb) 03/02/2024 1:29 PM CDT Height 180.3 cm (5' 11) 05/06/2020 12:16 AM CDT Body Mass Index 15.9 05/06/2020 12:16 AM CDT Plan of Treatment Health Maintenance Due Date Last Done Comments Depression screening for age 12+ 1997 BMI (ht and wt on same day) for age 18+ 11/12/2020 2019 Lipids for age 35-44 2020 12/23/2014 COVID-19 vaccine series ( season) 2024 Influenza for age 9-49 03/08/2024 3, 06/04/2019, 05/05/2012 Tetanus booster 09/07/2029 09/08/2019 Hepatitis B series for Diabetes Completed 09/08/2019, 05/07/2012, 10/15/2003 Tdap Completed 09/08/2019 Pneumococcal series for age 6-64 Completed 03/20/20 23, 05/05/2012 HIV for age 15-65 Completed 03/02/2024 Hepatitis C screening for age 18-79 Completed 03/02 Procedures Procedure Name Priority Date/Time Associated Diagnosis Comments SCAN-CT INTERPRETATION 12:00 AM CDT CBC WITH AUTO DIFFERENTIAL Routine 03/02/2024 1:11 PM CDT Screening for deficiency anemia VITAMIN D 25 (DEFICIENCY) Routine 03/02/2024 1:11 PM CDT Encounter for vitamin deficiency screening CBC WITH AUTO DIFFERENTIAL Routine 03/02/2024 1:11 PM CDT Screening for deficiency anemia BASIC METABOLIC PANEL Routine 03/02/2024 1:11 PM CDT Wellness examination ANTI HIV 1/2 Routine 03/02/2024 1:11 PM CDT Screening for HIV without presence of risk factors ANTI HCV Routine 03/02/2024 1:11 PM CDT Encounter for hepatitis C screening test for low risk patient HEMOGLOBIN A1C Routine 03/02/2024 1:11 PM CDT Uncontrolled type 1 diabetes mellitus with hyperglycemia (HC) LIPID PANEL W REFLEX MEASURED LDL Routine 12/23/2014 9:52 AM CDT Type I (juvenile type) diabetes mellitus without mention of complication, not stated as uncontrolled from Last 3 Months or Most Recently Relevant to Health Maintenance Results * SCAN-CT INTERPRETATION (03/18/2024 12:00 AM CDT) Anatomical Region Laterality Modality Other Scanner OTHER * (ABNORMAL) CBC WITH AUTO DIFFERENTIAL (03/02/2024 1:11 PM CDT) WHITE BLOOD COUNT 17.3(H) 4.5 - 11.0 thou/cu mm 03/02/2024 1:16 PM CDT [facility] RED BLOOD COUNT 3.68(L) 4.30 - 5.90 mil/cu mm 03/02/2024 1:16 PM CDT [facility] HEMOGLOBIN 10.5(L) 13.5 - 17.5 g/dL 03/02/2024 1:16 PM CDT [facility] HEMATOCRIT 33.6(L) 37.0 - 53.0 % 03/02/2024 1:16 PM CDT [facility] MCV 91 80 - 100 fL 03/02/2024 1:16 PM CDT [facility] MCH 28.5 26.0 - 34.0 pg 03/02/2024 1:16 PM CDT [facility] MCHC 31.3(L) 32.0 - 36.0 g/dL 03/02/2024 1:16 PM CDT [facility] RDW 18.4(H) 11.5 - 15.5 % 03/02/2024 1:16 PM CDT [facility] PLATELET COUNT 551(H) 140 - 440 thou/cu mm 03/02/2024 1:16 PM CDT [facility] MPV 11.4(H) 6.5 - 11.0 fL 03/02/2024 1:16 PM CDT [facility] % NEUT 82.2 % 03/02/2024 1:16 PM CDT [facility] % LYMPH 9.9 % 03/02/2024 1:16 PM CDT [facility] % MONO 5.9 % 03/02/2024 1:16 PM CDT [facility] % EOS 1.8 % 03/02/2024 1:16 PM CDT [facility] % BASO 0.2 % 03/02/2024 1:16 PM CDT [facility] ABSOLUTE NEUTROPHILS 14.3(H) 1.7 - 7.0 thou/cu mm 03/02/2024 1:16 PM CDT [facility] ABSOLUTE LYMPHOCYTES 1.7 0.9 - 2.9 thou/cu mm 03/02/2024 1:16 PM CDT [facility] ABSOLUTE MONOCYTES 1.0(H) <0.9 thou/cu mm 03/02/2024 1:16 PM CDT [facility] ABSOLUTE EOSINOPHILS 0.3 <0.5 thou/cu mm 03/02/2024 1:16 PM CDT [facility] ABSOLUTE BASOPHILS 0.0 <0.3 thou/cu mm 03/02/2024 1:16 PM CDT [facility] Blood BLOOD SPECIMEN / Unknown Venipuncture / Unknown 03/02/2024 1:11 PM CDT 03/02/2024 1:11 PM CDT Salvador Saleh MD HEMATOLOGY [facility] [address] [place] [address], * VITAMIN D 25 (DEFICIENCY) (03/02/2024 1:11 PM CDT) [facility] VITAMIN D TOTAL 20.5 20.0 - 80.0 ng/mL 03/02/2024 11:30 PM CDT [facility] Blood BLOOD SPECIMEN / Unknown Venipuncture / Unknown 03/02/2024 1:11 PM CDT 03/02/2024 1:[address] [facility] - 03/02/2024 11:30 PM CDT ? Vitamin D Status Deficiency: ? <20 ng/mL Insufficiency: ?20-29 ng/mL Sufficiency: ?30-80 ng/mL Possible Toxicity: ??>80 ng/mL Based on [place] of [employer] recommendations Biotin supplements may cause clinically significant interference for this test assay. ??If interference is suspected, it is strongly recommended that biotin is discontinued for at least one week prior to retesting. Salvador Saleh MD SEND OUTS [facility] [address] [place] [address], * ANTI HCV (03/02/2024 1:11 PM CDT) [facility] HEPATITIS C ANTIBODY Non-Reacti ve Non-React ritchie 03/02/2024 11:20 PM CDT [facility] Comment:Please note, per www .CDC.gov: If a patient is known to be at high risk of HCV infection, or is symptomatic, and the physician's suspicion of HCV infection is high, HCV RNA testing is often employed and is of diagnostic value, even after an initial negative anti-HCV test result. Blood BLOOD SPECIMEN / Unknown Venipuncture / Unknown 03/02/2024 1:11 PM CDT 03/02/2024 1:11 PM CDT Salvador Saleh MD SEND OUTS Performing Organization Address City/[facility]/ZIP Co de Phone Number [facility] [address] [place] [address], * ANTI HIV 1/2 (03/02/2024 1:11 PM CDT) HIV-1/HIV-2 SCREEN Non-Reacti ve Non-Reacti ve 03/03/2024 12:08 AM CDT [facility] Comment:HIV-1 p24 and HIV-1/ HIV-2 Ab Not Detected. Blood BLOOD SPECIMEN / Unknown Venipuncture / Unknown 03/02/2024 1:11 PM CDT 03/02/2024 1:11 PM CDT Salvador Saleh MD SEND OUTS Performing Organization Address City/[facility] Co de Phone Number [facility] [address] [place] [address], * (ABNORMAL) HEMOGLOBIN A1C MONITORING (POCT) (03/02/2024 1:11 PM CDT) HEMOGLOBIN A1C MONITORING (POCT) 7.4(H) <=6.4 % 03/02/2024 1:22 PM CDT [facility] Blood BLOOD SPECIMEN / Unknown Venipuncture / Unknown 03/02/2024 1:11 PM CDT 03/02/2024 1:11 PM CDT Narrative [facility] - 03/02/2024 1:22 PM CDT ? (<=6.9%) ? Indicates good control ? (7.0% to 7.9%) ? Indicates fair control ? (>=8.0%) ? Indicates poor control ?? NOTE: ??These thresholds are guidelines and ?individual targets may vary. Falsely low levels may be seen with: Recent Transfusion, Recent Significant Blood Loss, Hemolytic Diseases, or Falsely elevated levels may be seen with: Untreated Anemias, Splenectomy ? Salvador Saleh MD CHEMISTRY [facility] [address] [place] [address], * (ABNORMAL) BASIC METABOLIC PANEL (03/02/2024 1:11 PM CDT) SODIUM 128(L) 136 - 145 mmol/L 03/03/2024 1:07 AM [facility] POTASSIUM 5.1 3.5 - 5.1 mmol/L 03/03/2024 1:07 AM [facility] CHLORIDE 96(L) 98 - 107 mmol/L 03/03/2024 1:07 AM [facility] CO2,TOTAL 20(L) 22 - 29 mmol/L 03/03/2024 1:07 AM [facility] ANION GAP 12 5 - 18 03/03/2024 1:07 AM [facility] GLUCOSE 627(HH) 70 - 99 mg/dL 03/03/2024 1:07 AM [facility] CALCIUM 9.6 8.6 - 10.0 mg/dL 03/03/2024 1:07 AM [facility] BUN 15 6 - 20 mg/dL 03/03/2024 1:07 AM [facility] CREATININE 1.30(H) 0.70 - 1.20 mg/dL 03/03/2024 1:07 AM [facility] BUN/CREAT RATIO 12 10 - 20 1:07 AM [facility] eGFR 72(L) >90 mL/min/1.7 3m2 03/03/2024 1:07 AM [facility] Comment:As of 2021, eG FR is calculated by the CKD-EPI creatinine equation without race adjustment. ??eGFR can be influenced by muscle mass, exercise, and diet. ??The reported eGFR is an estimation only and is only applicable if the renal function is stable. Blood BLOOD SPECIMEN / Unknown Venipuncture / Unknown 03/02/2024 1:11 PM CDT 03/02/2024 1:11 PM CDT Salvador Saleh MD CHEMISTRY Performing Organization Address City/[facility]/ZIP Co de Phone Number [facility] [address] [place] [address], [place] * (ABNORMAL) LIPID PANEL W REFLEX MEASURED LDL (12/23/2014 9:52 AM CDT) CHOLESTEROL,TOTAL 166 100 - 199 mg/dL 12/23/2014 3:12 PM CD[address] [facility] TRIGLYCERIDES 161(H) <150 mg/dL 12/23/2014 3:12 PM [address] [facility] HDL CHOLESTEROL 23(L) >40 mg/dL 5 3:12 PM CDT [facility] NON-HDL CHOLESTEROL 143 <145 mg/dl 12/23/2014 3:12 PM CDT [facility] CHOL/HDL RATIO 7.22(H) <4.50 12/23/2014 3:12 PM CDT [facility] LDL CHOLESTEROL 111 <=130 mg/dL 12/23/2014 3:12 PM CD[address] [facility] PATIENT STATUS FASTING 12/23/2014 3:12 PM CDT [facility] Blood specimen (specimen) BLOOD SPECIMEN / Unknown Venipuncture / Unknown 12/23/2014 9:52 AM CDT 12/23/2014 9:53 AM CDT Markie Stone MD CHEMISTRY [facility] [address] [place] [address], [place] from Last 3 Months or Most Recently Relevant to Health Maintenance Care Teams Credit Resolution Representative Relationship Specialty Start Date End Date Caron Loyd RN [address] [place] [address] [phone] Metal Pattern Maker Registered Nurse 11/23/19
--- OUTSIDE RECORDS SUMMARY | 2024-03-20 01:32 | XMS_ITS | Clinical Summary ---
Author Organization [place] Address [address] [place] [address] Care Team Providers Care Blow Down Operator Name Role Phone No Ref-Primary, Physician Primary Care Provider Allergies No known active allergies Medications Medication Sig Dispensed Refills Start Date End Date Status emfwjw-ysnvwgny-epu marcolaila (CREON 36) [id number] units CPEP Take 2 capsules by mouth 3 times daily (with meals) Active loperamide (IMODIUM) 1 MG/5ML liquid Take 2 mg by mouth 4 times daily as needed for diarrhea Active multivitamin, therapeutic (THERA-VIT) TABS tabletIndications:M oderate protein-calorie malnutrition (H24) Take 1 tablet by mouth daily 11/01/2022 Active tamsulosin (FLOMAX) 0.4 MG capsuleIndications: Urinary retention Take 1 capsule (0.4 mg) by mouth every evening 30 capsule 1 10/31/2022 Active thiamine (B-1) 100 MG tabletIndications:M oderate protein-calorie malnutrition (H24) Take 1 tablet (100 mg) by mouth daily 30 tablet 1 11/01/2022 Active Glucagon (GVOKE HYPOPEN) 1 MG/0.2ML penIndications:Poor ly controlled type 1 diabetes mellitus (H) Inject the contents of 1 device under the skin into lower abdomen, outer thigh, or outer upper arm as needed for hypoglycemia. If no response after 15 minutes, additional 1 mg dose from a new device may be injected while waiting for emergency assistance. 0.4 mL 1 10/31/2022 Active Continuous Blood Gluc [employer] (FREESTYLE TASHIA 2 READER) DEVIIndications:Poo rly controlled type 1 diabetes mellitus (H) Use to read blood sugars as per boom stick worker's instructions. 1 each 10/31/2022 Active Continuous Blood Gluc Sensor (FREESTYLE TASHIA 2 SENSOR) MISCIndications:Poo rly controlled type 1 diabetes mellitus (H) Change every 14 days. 2 each 10/31/2022 Active blood glucose (ACCU-CHEK SOFTCLIX) lancing deviceIndications:P oorly controlled type 1 diabetes mellitus (H) Lancing device to be used with lancets. 1 each 10/31/2022 Active blood glucose monitoring (SOFTCLIX) lancetsIndications: Poorly controlled type 1 diabetes mellitus (H) Use to test blood sugar 4 times daily. 100 each 10/31/2022 Active alcohol swab prep padsIndications:Poo rly controlled type 1 diabetes mellitus (H) Use to swab area of injection/jerrell as directed. 100 each 10/31/2022 Active blood glucose (NO BRAND SPECIFIED) test stripIndications:Po carmel controlled type 1 diabetes mellitus (H) Use to test blood sugar 4 times daily or as directed. To accompany: Blood Glucose Monitor Brands: Accucheck guide 100 strip 10/31/2022 Active blood glucose calibration (NO BRAND SPECIFIED) solutionIndications :Poorly controlled type 1 diabetes mellitus (H) Use to calibrate blood glucose monitor as needed as directed. To accompany: Blood Glucose Monitor Brands: accucheck 1 each 10/31/2022 Active thin (NO BRAND SPECIFIED) lancetsIndications: Poorly controlled type 1 diabetes mellitus (H) Use to test blood sugar 4 times daily or as directed. To accompany: Blood Glucose Monitor Brands: accucheck 1 each 10/31/2022 Active alcohol swab prep padsIndications:Poo rly controlled type 1 diabetes mellitus (H) Use to swab area of injection/jerrell as directed 100 each 10/31/2022 Active insulin pen needle (32G X 4 MM) 32G X 4 MM miscellaneousIndica tions:Poorly controlled type 1 diabetes mellitus (H) Use pen needles 4 times daily or as directed. 100 each 10/31/2022 Active insulin aspart (NOVOLOG PEN) 100 UNIT/ML penIndications:Poor ly controlled type 1 diabetes mellitus (H) Inject 8 Units Subcutaneous 3 times daily (with meals) 15 mL 12/04/2022 Active insulin detemir (LEVEMIR PEN) 100 UNIT/ML penIndications:Poor ly controlled type 1 diabetes mellitus (H) Inject 25 Units Subcutaneous At Bedtime 15 mL 12/04/2022 Active loperamide (IMODIUM A-D) 1 MG/7.5ML Take 15 mLs (2 mg) by mouth 4 times daily as needed for diarrhea 237 mL 12/04/2022 Active Active Problems Problem Noted Date Diagnosed Date Urinary retention 10/28/2022 Hydroureteronephrosis 10/28/2022 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 Hyperosmolar non-ketotic sta te in patient with type 2 diabetes mellitus 06/04/2019 Type 1 diabetes mellitus with hyperglycemia 11/06 Poorly controlled type 1 diabetes mellitus Hyponatremia Hives Immunizations Name Administration Dates Next Due Influenza Vaccine >6 months,quad, PF 06/04/2019 Social History Tobacco Use Types Packs/Day Years Used Date Smoking Tobacco: Every Day Cigarettes Smokeless Tobacco: Former Alcohol Use Standard Drinks/Week Comments Yes 0 (1 standard drink = 0.6 oz pur e alcohol) Adolescent Education Answer Date Record ed Getting School Help Needed Not on file 03/30 Sex and Gender Information Value Date Recorded Sex Assigned at Not on file Gender Identity Not on file Sexual Orientation Not on file Last Filed Vital Signs Vital Sign Reading Time Taken Comments Blood Pressure 116/57 12/04/2022 10:00 PM CDT Pulse 105 12/04/2022 10:00 PM CDT Temperature 37.7 ??C (99.9 ??F) 12/04/2022 9:02 PM CD T Respiratory Rate 19 12/04/2022 10:0 0 PM CDT Oxygen Saturation 98% 12/04/2022 10: 00 PM CDT Inhaled Oxygen Concentration - - Weight 57.1 kg (125 lb 14.1 oz) 10/29/2022 1:00 PM CDT Height 177.8 cm (5' 10) 10/28/2022 1:21 PM CDT Body Mass Index 18.06 10/28/2022 1:21 PM CDT Plan of Treatment Health Maintenance Due Date Last Done Comments ADVANCE CARE PLANNING 1985 ANNUAL REVIEW OF HM ORDERS 1985 DIABETIC FOOT EXAM 1985 EYE EXAM 1985 LIPID 1985 MICROALBUMIN 1985 YEARLY PREVENTIVE VISIT 1985 HIV SCREENING 2000 HEPATITIS C SCREENING 11/14/2003 A1C 03/06/2023 12/04/2022, 10/07, 06/04/2019 PHQ-2 (once per calendar year) 2023 COVID-19 Vaccine (1 - 2022-24 season) 2024 INFLUENZA VACCINE (#1) 2024 , 06/04/2019, 05/05/2012 BMP 12/23/2024 12/24/2023, 08/08, 05/23/2023, Additional history exists DTAP/TDAP/TD IMMUNIZATION (2 - Td or Tdap) 09/07/2029 09/08/2019 HEPATITIS B IMMUNIZATION Completed 020, 05/07/2012, 10/15/2003 Pneumococcal Vaccine: Pediatrics (0 to 5 Years) and At-Risk Patients (6 to 64 Years) Completed 03/20/2023, 05/05/2012 MENINGITIS IMMUNIZATION Aged Out 05/21/2023, 03/20 No longer eligible based on patient's age to complete this topic HPV IMMUNIZATION Aged Out No longer e ligible based on patient's age to complete this topic RSV MONOCLONAL ANTIBODY Aged Out No l onger eligible based on patient's age to complete this topic Procedures Procedure Name Priority Date/Time Associated Diagnosis Comments CBC WITH PLATELETS & DIFFERENTIAL STAT 12/24/2023 1:30 PM CDT Anemia, unspecified CBC WITH PLATELETS AND DIFFERENTIAL STAT 12/24/2023 1:30 PM CDT Anemia, unspecified BASIC METABOLIC PANEL STAT 12/24/2023 1:30 PM CDT Anemia, unspecified HEMOGLOBIN A1C STAT 12/04/2022 9:11 PM CDT from Last 3 Months or Most Recently Relevant to Health Maintenance Results * (ABNORMAL) CBC with platelets and differential (12/24/2023 1:30 PM CDT) WBC Count 17.3(H) 4.0 - 11.0 10e3/uL 12/24/2023 5:45 PM CDT [facility] RBC Count 3.58(L) 4.40 - 5.90 10e6/uL 12/24/2023 5:45 PM CDT [facility] Hemoglobin 10.2(L) 13.3 - 17.7 g/dL 12/24/2023 5:45 PM CDT [facility] Hematocrit 34.2(L) 40.0 - 53.0 % 12/24/2023 5:45 PM CDT [facility] MCV 96 78 - 100 fL 12/24/2023 5:45 PM CDT [facility] MCH 28.5 26.5 - 33.0 pg 12/24/2023 5:45 PM CDT [facility] MCHC 29.8(L) 31.5 - 36.5 g/dL 12/24/2023 5:45 PM CDT [facility] RDW 16.6(H) 10.0 - 15.0 % 12/24/2023 5:45 PM CDT [facility] Platelet Count 728(H) 150 - 450 10e3/uL 12/24/2023 5:45 PM CDT [facility] % Neutrophils 69 % 12/24/2023 5:45 PM CDT [facility] % Lymphocytes 21 % 12/24/2023 5:45 PM CDT [facility] % Monocytes 7 % 12/24/2023 5:45 PM CDT [facility] % Eosinophils 2 % 12/24/2023 5:45 PM CDT [facility] % Basophils 1 % 12/24/2023 5:45 PM CDT [facility] % Immature Granulocytes 0 % 12/24/2023 5:45 PM CDT [facility] NRBCs per 100 WBC 0 <1 /100 024 5:45 PM CDT [facility] Absolute Neutrophils 11.9(H) 1.6 - 8.3 10e3/uL 12/24/2023 5:45 PM CDT [facility] Absolute Lymphocytes 3.6 0.8 - 5.3 10e3/uL 12/24/2023 5:45 PM CDT [facility] Absolute Monocytes 1.3 0.0 - 1.3 10e3/uL 12/24/2023 5:45 PM CDT [facility] Absolute Eosinophils 0.3 0.0 - 0.7 10e3/uL 12/24/2023 5:45 PM CDT [facility] Absolute Basophils 0.1 0.0 - 0.2 10e3/uL 12/24/2023 5:45 PM CDT [facility] Absolute Immature Granulocytes 0.1 <=0.4 10e3/uL 12/24/2023 5:45 PM CDT [facility] Absolute NRBCs 0.0 10e3/uL 12/24/2023 5:45 PM CDT [facility] Blood BLOOD SPECIMEN / Unknown Client Draw / Unknown 12/24/2023 1:30 PM CDT 12/24/2023 4:14 PM CDT Kim Olvera NP LAB - BLOOD ORDERABL ES [facility] [address] [facility], [address] [place] [address] * (ABNORMAL) Basic metabolic panel (12/24/2023 1:30 PM CDT) [facility] Sodium 139 135 - 145 mmol/L 12/24/2023 6:15 PM CDT [facility] Comment:Reference intervals for this test were updated on 04/02/2023 to more accurately reflect our healthy population. There may be differences in the flagging of prior results with similar values performed with this method. Interpretation of those prior results can be made in the context of the updated reference intervals. Potassium 5.3 3.4 - 5.3 mmol/L 12/24/2023 6:15 PM CDT [facility] Chloride 108(H) 98 - 107 mmol/L 12/24/2023 6:15 PM CDT [facility] Carbon Dioxide (CO2) 19(L) 22 - 29 mmol/L 12/24/2023 6:15 PM CDT [facility] Anion Gap 12 7 - 15 mmol/L 12/24/2023 6:15 PM CDT [facility] Urea Nitrogen 16.5 6.0 - 20.0 mg/dL 12/24/2023 6:15 PM CDT [facility] Creatinine 1.43(H) 0.67 - 1.17 mg/dL 12/24/2023 6:15 PM CDT [facility] GFR Estimate 64 >60 mL/min/1. 73m2 12/24/2023 6:15 PM CDT [facility] Comment:eGFR calculated 2020 CKD-EPI equation. Calcium 9.0 8.6 - 10.0 mg/dL 12/24/2023 6:15 PM CDT [facility] Glucose 124(H) 70 - 99 mg/dL 12/24/2023 6:15 PM CDT [facility] Blood BLOOD SPECIMEN / Unknown Client Draw / Unknown 12/24/2023 1:30 PM CDT 12/24/2023 4:14 PM CDT Kim Olvera NP LAB - BLOOD ORDERABL ES [facility] [address] [facility], [address] [place] [address] * (ABNORMAL) Hemoglobin A1c (12/04/2022 9:11 PM CDT) Hemoglobin A1C 12.7(H) <5.7 % 12/05/2022 9:27 AM CDT [facility] Comment: Normal <5.7% Prediabetes 5.7-6.4% ?? Diabetes 6.5% or higher Note: Adopted from ADA consensus guidelines. Blood VENOUS LINE / Unknown Venipuncture / Unknown 12/04/2022 9:11 PM CDT 12/04/2022 9:14 PM CDT Anibal Mattson MD LAB - BLOOD ORDERABLES [facility] [address] [place], [place] [address] [phone] from Last 3 Months or Most Recently Relevant to Health Maintenance Advance Directives For more information, please contact: [phone] * Full Code (Latest Code Status on File) Date Activated Date Inactivated Comments 10/28/2022 7:19 PM 10/31/2022 5:46 PM All basic an d advanced life-sustaining interventions are performed as appropriate Question Answer Comments Code status determined by: Discussion with patie nt/ legal decision maker Care Teams Blow Down Operator Relationship Specialty Start Date End Date No Ref-Primary, Physician PCP - General 02/08/22
--- OUTSIDE RECORDS SUMMARY | 2024-03-20 01:32 | XMS_ITS | Referral Summary ---
Author Organization [place] Address [address] [place] [address] Care Team Providers Care Film Critic Name Role Phone No Ref-Primary, Physician Primary Care Provider Allergies No known active allergies Medications Medication Sig Dispensed Refills Start Date End Date Status tvsfay-mgaaqusi-nvq israel (CREON 36) [id number] units CPEP Take 2 capsules by mouth [...] mL 1 10/31/2022 Active Continuous Blood Gluc Assistant Dean (FREESTYLE TASHIA 2 READER) DEVIIndications:Poo rly controlled type 1 diabetes mellitus (H) Use to read blood sugars as per mechanical reliability engineer's instructions. 1 each 10/31/2022 Active Continuous Blood [...] 10/28/2022 1:21 PM CDT Plan of Treatment Not on file Procedures Procedure Name Priority Date/Time Associated Diagnosis [...] platelets and differential (12/24/2023 1:30 PM CDT) [facility] Signature WBC Count 17.3(H) 4.0 - 11.0 10e3/uL [...] LAB - BLOOD ORDERABL ES [facility] [place] [facility] [address] [facility], [address] [place] [phone] * (ABNORMAL) Basic metabolic panel (12/24/2023 1:30 PM CDT) [facility] Sodium 139 135 - 145 mmol/L 12/24/2023 [...] LAB - BLOOD ORDERABL ES [facility] [place] [facility] [address] [facility], [address] [phone] * (ABNORMAL) Hemoglobin A1c (12/04/2022 9:11 PM CDT) Hemoglobin A1C 12.7(H) <5.7 % 12/05/2022 9:27 AM CDT [facility] Comment: Normal <5.7% Prediabetes 5.7-6.4% ?? Diabetes 6.5% or higher Note: Adopted from ADA consensus guidelines. Blood VENOUS LINE / Unknown Venipuncture / Unknown 12/04/2022 9:11 PM CDT 12/04/2022 9:14 PM CDT Anibal Mattson MD LAB - BLOOD ORDERABLES [facility] [address] [place] [address], [facility] [phone] from Last 3 Months or Most Recently Relevant to Health Maintenance Advance Directives For more information, please contact: [phone] * Full Code (Latest Code Status on File) Date Activated Date Inactivated Comments 10/28/2022 7:19 PM 10/31/2022 5:46 PM All basic an d advanced life-sustaining interventions are performed as appropriate Question Answer Comments Code status determined by: Discussion with patie nt/ legal decision maker Care Teams Film Critic Relationship Specialty Start Date End Date No Ref-Primary, Physician PCP - General 02/08/22
--- OUTSIDE RECORDS SUMMARY | 2024-03-20 01:32 | XMS_ITS | Encounter Summary ---
Author Organization [place] Address [address] [place] [address] Care Team Providers Care Field Applications Specialist Name Role Phone No Ref-Primary, Physician Primary Care Provider Reason for Visit * Reason Onset Date Comments Refill Request 10/31/2022 Encounter Details Date Type Department Care Team (Late st Contact Info) Description 10/31/[address] [phone] Hailey Guallpa MD [address] [place] [address] Refill Request Social History Tobacco Use Types Packs/Day Years Used Date Smoking Tobacco: Every Day Cigarettes Smokeless Tobacco: Former Alcohol Use Standard Drinks/Week Comments Yes 0 (1 standard drink = 0.6 oz pur e alcohol) Sex and Gender Information Value Date Recorded Sex Assigned at Not on file Gender Identity Not on file Sexual Orientation Not on file COVID-19 Exposure Response Date Recorded In the last 10 days, have yo u been in contact with someone who was confirmed or suspected to have Coronavirus/COVID-19? No / Unsure 10/28/2022 1:07 PM CDT documented as of this encounter Plan of Treatment Not on file documented as of this encounter Visit Diagnoses Diagnosis Poorly controlled type 1 diabetes mellitus (H) Type I (juvenile type) diabetes mellitus without mention of complication, not stated as uncontrolled documented in this encounter Care Teams Field Applications Specialist Relationship Specialty Start Date End Date No Ref-Primary, Physician PCP - General 02/08/22 documented as of this encounter
== END 2024-03-20 01:56 | disposition home or self-care (01) ==
PROVIDERS: Emergency Provider Internal Medicine; PCP Family Medicine
DX: N39.0 Urinary tract infection, site not specified (principal)
CPT/HCPCS: 36415; 80053; 85025; 99283